=== PATIENT | female | born 1965 | race Caucasian/White ===

== ENCOUNTER 2016-03-26 10:35 | Emergency (ER) | payer MEDICAID ==
[2016-03-26 11:03] VITALS: BP 157/79; PULSE 86; RESP 18; TEMP 98.6; O2SAT 97
--- NOTE | 2016-03-26 12:03 | UCPHY ---
H & P Time Seen by Provider: 03/26/16 11:55 Patient Type: New HPI/ROS: This patient reports exposure to her 15-year-old son who had clinical symptoms concerning for whooping cough though Artie study was not performed he was started on Zithromax and the symptoms have improved. She requests antibiotic coverage for pertussis. She has mild URI symptoms describing a mild sore throat subjective fevers and fatigue. She has mild nasal congestion and no other associated symptoms. ROS: No high fevers or chills. No other constitutional symptoms besides that mentioned in HPI HEENT: No ear pain. No face pain. Pulmonary: Minimal dry cough. No shortness of breath. Cardiovascular: No chest pain. Psychiatric: She has depression but she reports this is stable 7 point ROS is otherwise negative Past Medical/Surgical History: She had a negative cardiac stress test sometime within the last year at [facility]. Family history is negative for premature coronary artery disease Social History: No alcohol use. No drug use. Smoking Status: Former smoker Physical Exam: Physical Exam Vital signs are normal. General: No acute distress HEENT: Nose: Clear discharge. Oropharynx: No erythema or exudates. No dysphonia. Ears: Clear bilaterally Eyes: Pupils equal and react to light. Extraocular motions are intact. Lungs: Clear to auscultation bilaterally. No rales rhonchi or wheeze. No respiratory distress. Cardiac: Regular rate and rhythm with no murmur gallop rub. No peripheral edema. Skin: No rash or pallor. Neuro: Alert and oriented x3 with no sensorimotor deficits. Constitutional: Initial Vital Signs Temperature (C) 37 C 03/26/16 11:01 Heart Rate 86 03/26/16 11:01 Respiratory Rate 18 03/26/16 11:01 Blood Pressure 157/79 H 03/26/16 11:01 O2 Sat (%) 97 03/26/16 11:01 O2 Delivery Mode Room Air Allergies/Adverse Reactions: ketorolac [Ketorolac] Allergy (Severe, Verified 03/26/16 11:00) extreme agitation prochlorperazine edisylate [From Compazine] Allergy (Severe, Verified 03/26/16 11:00) AGITATION ergot alkaloids [Ergot Alkaloids] Allergy (Verified 03/26/16 11:00) Home Medications: Medication Instructions Recorded METHADONE HCL 40 mg 11/15/09 SYNTHROID 11/15/09 TOPAMAX 11/15/09 Xanax PRN 05/12/10 Effexor 01/27/13 Gabapentin [Neurontin 100 MG (RX)] 05/20/14 Azithromycin [Zithromax] 250 mg PO DAILY #6 tab 03/26/16 MDM/Departure - [facility] ED Course/Re-evaluation: This patient appears clinically well. I think her fatigue is attributable to a viral illness or pertussis. I counseled her regarding this. - Depart Clinical Impression: Exposure to pertussis Instructions: Pertussis (ED) Additional Instructions: Diagnoses: 1. Exposure to pertussis 2. Fatigue Plan: Zithromax antibiotic Follow up with primary care physician for any ongoing symptoms Return here to the emergency department for any significant worsening despite treatment plan Prescriptions: Azithromycin [Zithromax] 250 mg PO DAILY #6 tab [place]errals: [place],. [Primary Care Provider] - As per Instructions - PQRS PQRS Measurement: NA
== END 2016-03-26 12:07 | disposition home or self-care (01) ==
LOC: CED 10:35
DX: A37.90 Whooping cough, unspecified species without pneumonia (principal); Z87.891 Personal history of nicotine dependence
CPT/HCPCS: 87400-PO; 99204-PO; G0463-PO

== ENCOUNTER 2016-12-02 13:10 | Emergency (ER) | payer MEDICAID ==
[2016-12-02 13:27] VITALS: TEMP 100.8
[2016-12-02] MEDS ORDERED: NS 1,000 ML IV ONE ×2 (13:27→14:57)
[2016-12-02] MEDS ORDERED: HALOPERIDOL LACT 5 MG/ML INJ IVP ONE (13:28)
[2016-12-02] MEDS ORDERED: IOPAMIDOL (ISOVUE-300) 100 ML BTL ONE (13:38)
[2016-12-02 13:49] LABS: % IMMATURE GRANULYOCYTES 0.3 % (0.0-1.1); ABSOLUTE IMMATURE GRANULOCYTES 0.03 10^3/uL (0.00-0.10); ADD DIFF? NO; ADD MORPH? NO; ADD SCAN? NO; ATYPICAL LYMPHOCYTE FLAG 0 (0-99); FRAGMENT RBC FLAG 0 (0-99); HEMOGLOBIN 15.1 g/dL (12.6-16.3); LEFT SHIFT FLG 0 (0-99); LIPEMIA HEMOLYSIS FLAG 90 (0-99); MEAN CELL HEMOGLOBIN 28.4 pg (27.9-34.1); MEAN CELL HEMOGLOBIN CONCENTR. 34.3 g/dL (32.4-36.7); MEAN CELL VOLUME 82.9 fL (81.5-99.8); MEAN PLATELET VOLUME 9.5 fL (8.7-11.7); PLATELET CLUMPS FLAG 10 (0-99); PLATELET COUNT 275 10^3/uL (150-400); RED BLOOD CELL COUNT 5.31 10^6/uL (4.18-5.33); RED CELL DISTRIBUTION WIDTH 13.9 % (11.5-15.2)
--- NOTE | 2016-12-02 13:54 | EDPHY ---
H & P Stated Complaint: abd pain started x 1 week Time Seen by Provider: 12/02/16 13:16 HPI/ROS: CHIEF COMPLAINT: Abdominal pain, nausea and diarrhea History by patient HISTORY OF PRESENT ILLNESS: 51-year-old woman with a history of prior stroke and chronic pain on multiple medications presents complaining of several days of "not feeling right "with the development of nausea and diarrhea for the past several days she describes as liquid and nonbloody. She has had no actual vomiting. She has been having hot and cold flashes and think she has had a fever at home. She also has some right lower back pain and bilateral lower quadrant abdominal pain. She denies any dysuria, urgency frequency or hematuria. She has had pyelonephritis in the past and says this feels different. She says she is currently taking all her medications and has not run out or changed dose of methadone. She has had a poor appetite with this. REVIEW OF SYSTEMS: As in HPI, and all other systems reviewed and are negative Source: Patient - Personal History LMP (Females 10-55): Post Menopausal Current Tetanus Diphtheria and Acellular Pertussis (TDAP): Unsure - Medical/Surgical History Hx Asthma: No Hx Chronic Respiratory Disease: No Hx Diabetes: No Hx Cardiac Disease: No Hx Renal Disease: No Hx Cirrhosis: No Hx Alcoholism: No Hx HIV/AIDS: No Hx Splenectomy or Spleen Trauma: No Other PMH: STROKE 1996, WITH RESIDUAL RT SIDED NERVE PAIN, NUMBNESS, TINGLING ERT SIDE WITH VISION LOSS. MIgraines. hernia repair. csection. laproscopic surg. - Social History Smoking Status: Former smoker - Physical Exam Exam: General Appearance: Alert, uncomfortable appearing. Eyes: Pupils equal and round no pallor or injection. ENT, Mouth: Mucous membranes moist. Respiratory: Normal, effort, lungs are clear to auscultation. No wheezes, rales or rhonchi. Cardiovascular: Regular rate and rhythm. S1, S2, no murmurs, gallops or rubs appreciated Gastrointestinal: Abdomen is soft and mild, right lower quadrant greater than left tenderness, no masses, bowel sounds normal. Back: Positive right CVA tenderness, no bony tenderness Neurological: Awake, alert and oriented x 3, no pronator drift, normal gait, no pronator drift, tremulous Skin: Warm and dry, no rashes. Musculoskeletal: No deformities or tenderness. Extremitie:s full range of motion, no edema Psychiatric: Patient has normal affect, there is no agitation. Constitutional: Initial Vital Signs Temperature (C) 38.2 C 12/02/16 13:19 Heart Rate 97 12/02/16 13:19 Respiratory Rate 18 12/02/16 13:19 Blood Pressure 169/109 H 12/02/16 13:19 O2 Sat (%) 96 12/02/16 13:19 O2 Delivery Mode Room Air Allergies/Adverse Reactions: ketorolac [Ketorolac] Allergy (Severe, Verified 12/02/16 13:17) extreme agitation prochlorperazine edisylate [From Compazine] Allergy (Severe, Verified 12/02/16 13:17) AGITATION ergot alkaloids [Ergot Alkaloids] Allergy (Verified 12/02/16 13:17) Home Medications: Medication Instructions Recorded METHADONE HCL 40 mg 11/15/09 SYNTHROID 11/15/09 TOPAMAX 11/15/09 Effexor 01/27/13 Gabapentin [Neurontin 100 MG (RX)] 05/20/14 Cephalexin 500 mg PO TID #30 tablet 12/02/16 Medical Decision Making - Diagnostics Imaging Results: Imaging Impressions Abdomen CT 12/02/16 13:29 Impression: 1. No colitis, diverticulitis, or obstruction. 2. No evidence for appendicitis or inflammatory bowel disease. 3. Minimal degenerative grade 1 anterolisthesis at L4-L5. Findings and recommendations discussed with Emergency Department physician, Eleonora Wilson M.D. at 1459 hours, December 02, 2016. Final report concurs with initial preliminary interpretation. ED Course/Re-evaluation: 2:05 p.m. patient was given IV Haldol and Benadryl for her nausea and vomiting abdominal pain after which she began feeling very anxious, uncomfortable and feeling like she was going to "crawl out of her skin ". This was all consistent with an akisthetic reaction to Haldol. Patient was given additional dose of IV Benadryl after which she was feeling better. 51-year-old woman presents with fever, nausea, lower abdominal pain tenderness, diarrhea and right CVA tenderness. Labs are notable for slightly elevated sodium suggesting dehydration. Patient was given IV fluids. Because of her right lower quadrant tenderness I was concerned about appendicitis or colitis or diverticulitis. Therefore CT scan abdomen pelvis was obtained which was read as nothing acute by the radiologist. Urinalysis was suggestive of infection and given her fever, nausea and right CVA tenderness I will go ahead and treat her for pyelonephritis. Patient was given IV ceftriaxone in the emergency department will be sent home on oral Keflex. Urine culture was ordered. On re-evaluation she was feeling somewhat better. She will be discharged home in stable condition. - Data Points Laboratory Results: Laboratory Results 12/02/16 13:30 12/02/16 13:30 12/02/16 12/02/16 12/02/16 14:48 13:30 13:30 WBC 8.71 10^3/uL 10^3/uL (3.80-9.50) RBC 5.31 10^6/uL 10^6/uL (4.18-5.33) Hgb 15.1 g/dL g/dL (12.6-16.3) Hct 44.0 % % (38.0-47.0) MCV 82.9 fL fL (81.5-99.8) MCH 28.4 pg pg (27.9-34.1) MCHC 34.3 g/dL g/dL (32.4-36.7) RDW 13.9 % % (11.5-15.2) Plt Count 275 10^3/uL 10^3/uL (150-400) MPV 9.5 fL fL (8.7-11.7) Neut % (Auto) 63.4 % % (39.3-74.2) Lymph % (Auto) 28.1 % % (15.0-45.0) [place] % (Auto) 6.9 % % (4.5-13.0) Eos % (Auto) 0.6 % % (0.6-7.6) Baso % (Auto) 0.7 % % (0.3-1.7) Nucleat RBC Rel Count 0.0 % % (0.0-0.2) Absolute Neuts (auto) 5.52 10^3/uL 10^3/uL (1.70-6.50) Absolute Lymphs (auto) 2.45 10^3/uL 10^3/uL (1.00-3.00) Absolute Monos (auto) 0.60 10^3/uL 10^3/uL (0.30-0.80) Absolute Eos (auto) 0.05 10^3/uL 10^3/uL (0.03-0.40) Absolute Basos (auto) 0.06 10^3/uL 10^3/uL (0.02-0.10) Absolute Nucleated RBC 0.00 10^3/uL 10^3/uL (0-0.01) Immature Gran % 0.3 % % (0.0-1.1) Immature Gran # 0.03 10^3/uL 10^3/uL (0.00-0.10) Sodium 146 mEq/L H mEq/L (134-144) Potassium 3.6 mEq/L mEq/L (3.5-5.2) Chloride 109 mEq/L mEq/L (97-110) Carbon Dioxide 21 mEq/l L mEq/l (22-31) Anion Gap 16 mEq/L mEq/L (8-16) BUN 6 mg/dL L mg/dL (7-23) Creatinine 0.8 mg/dL mg/dL (0.6-1.0) Estimated GFR > 60 Glucose 108 mg/dL H mg/dL (70-100) Calcium 10.0 mg/dL mg/dL (8.5-10.4) Total Bilirubin 0.6 mg/dL mg/dL (0.1-1.4) Conjugated Bilirubin 0.4 mg/dL mg/dL (0.0-0.5) Unconjugated Bilirubin 0.2 mg/dL mg/dL (0.0-1.1) AST 19 IU/L IU/L (14-46) ALT 40 IU/L IU/L (9-52) Alkaline Phosphatase 73 IU/L IU/L (38-126) Total Protein 8.3 g/dL H g/dL (6.3-8.2) Albumin 5.0 g/dL g/dL (3.5-5.0) Lipase 67 IU/L IU/L (23-300) Urine Color PALE YELLOW Urine Appearance HAZY Urine pH 6.0 (5.0-7.5) Ur Specific [place] <= 1.005 (1.002-1.030) Urine Protein NEGATIVE (NEGATIVE) Urine Ketones NEGATIVE (NEGATIVE) Urine Blood TRACE H (NEGATIVE) Urine Nitrate NEGATIVE (NEGATIVE) Urine Bilirubin NEGATIVE (NEGATIVE) Urine Urobilinogen 0.2 EU EU (0.2-1.0) Ur Leukocyte Esterase 2+ H (NEGATIVE) Urine RBC 0-1 /hpf /hpf (0-3) Urine WBC 15-25 /hpf H /hpf (0-3) Ur Epithelial Cells 1+ /lpf /lpf (NONE-1+) Urine Bacteria 1+ /hpf H /hpf (NONE SEEN) Urine Mucus 1+ /lpf /lpf (NONE-1+) Urine Glucose NEGATIVE (NEGATIVE) Medications Given: Discontinued Medications Diphenhydramine HCl (Benadryl Injection) 25 mg IVP EDNOW ONE Stop: 12/02/16 13:29 Last Admin: 12/02/16 13:40 Dose: 25 mg Diphenhydramine HCl (Benadryl Injection) 25 mg IVP EDNOW ONE Stop: 12/02/16 14:04 Last Admin: 12/02/16 14:06 Dose: 25 mg Haloperidol Lactate (Haldol Injection) 2.5 mg IVP EDNOW ONE Stop: 12/02/16 13:29 Last Admin: 12/02/16 13:52 Dose: 2.5 mg Sodium Chloride (Ns) 1,000 mls @ 0 mls/hr IV EDNOW ONE; Wide Open PRN Reason: Protocol Stop: 12/02/16 13:28 Last Admin: 12/02/16 13:35 Dose: 1,000 mls Sodium Chloride (Ns) 1,000 mls @ 0 mls/hr IV ONCE ONE PRN Reason: Wide Open Stop: 12/02/16 14:58 Last Admin: 12/02/16 14:58 Dose: 1,000 mls Departure - Departure Disposition: Home, Routine, Self-Care Clinical Impression: Acute pyelonephritis Condition: Good Instructions: Kidney Infection (ED) Additional Instructions: You were seen by Dr. Eleonora Wilson today. Please take antibiotics as prescribed. You may take additional doses of oral Benadryl 25 mg at home if the symptoms anxiety and crawling out of your Skin reoccur. You may consider resolve allergic to the haloperidol (Haldol). Return for any worsening or new concerns. Referrals: ABBY BETTENCOURT [Other] - As per Instructions Prescriptions: Cephalexin 500 mg PO TID #30 tablet
[2016-12-02 14:01] LABS: ALANINE AMINOTRANSFERASE 40 IU/L (9-52); ALKALINE PHOSPHATASE 73 IU/L (38-126); ANION GAP 16 mEq/L (8-16); ASPARTATE AMINOTRANSFERASE 19 IU/L (14-46); BILIRUBIN,TOTAL 0.6 mg/dL (0.1-1.4); BILIRUBIN-CONJUGATED 0.4 mg/dL (0.0-0.5); BILIRUBIN-UNCONJUGATED 0.2 mg/dL (0.0-1.1); CARBON DIOXIDE 21 mEq/l (22-31); CHLORIDE 109 mEq/L (97-110); CREATININE 0.8 mg/dL (0.6-1.0); GLOMERULAR FILTRATION RATE > 60; GLUCOSE 108 mg/dL (70-100); POTASSIUM 3.6 mEq/L (3.5-5.2); SODIUM 146 mEq/L (134-144); TOTAL PROTEIN 8.3 g/dL (6.3-8.2)
[2016-12-02 14:57] LABS: COLOR PALE YELLOW; LEUKOCYTE ESTERASE,URINE 2+ (NEGATIVE); NITRITE,URINE NEGATIVE (NEGATIVE)
[2016-12-02 15:08] LABS: MUCUS 1+ /lpf (NONE-1+); RBC,URINE 0-1 /hpf (0-3); WBC,URINE 15-25 /hpf (0-3)
[2016-12-02 15:09] LABS: BACTERIA 1+ /hpf (NONE SEEN)
[2016-12-02] MEDS ORDERED: cefTRIAXone 250 MG VIAL IV ONE (15:18)
[2016-12-02] MEDS ORDERED: cefTRIAXone 1 GM VIAL ONE (15:22)
[2016-12-02] MEDS ORDERED: NS 100 ML BAG IV ONE (15:23)
[2016-12-02] MEDS ORDERED: CEPHALEXIN 500MG PREPACK#4 BTL TAKEHOME ONE ×2 (15:53→16:05)
[2016-12-02 16:04] VITALS: BP 164/79; PULSE 75; RESP 14; O2SAT 98
== END 2016-12-02 16:01 | disposition home or self-care (01) ==
LOC: CED 13:10
PROC: 3E0337Z Introduction of Electrolytic and Water Balance Substance into Peripheral Vein, Percutaneous Approach (ICD-10-PCS; principal; 2016-12-02)
DX: N10 Acute pyelonephritis (principal); E86.9 Volume depletion, unspecified; Z87.891 Personal history of nicotine dependence
CPT/HCPCS: 74177-PO; 80048-PO; 80076-PO; 81003-PO; 81015-PO; 83690-PO; 85025-PO; 96365; J0696; J1200; Q9967